=== PATIENT | female | born 1940 | race Caucasian/White ===

== ENCOUNTER 2021-05-07 10:50 | Emergency (ER) | payer MEDICARE, OTHER ==
[~2021-05-07] VITALS: Ht 154.9 cm; Wt 74.4 kg
--- NOTE | 2021-05-07 10:59 | NUR ---
To ER bed 6, bibdaughter, c/o bilateral hand pain and swelling x 1 month, 02/06 ps, aaox3, breathing even and non labored, connected to monitor
[2021-05-07 11:25] LABS: HEMOGLOBIN 11.6 g/dL (11.5-14.8)
[2021-05-07 11:28] LABS: BASOPHILS # (AUTO) 0.1 K/uL (0.0-0.2); BASOPHILS % (AUTO) 0.8 % (0.0-2.0); EOSINOPHILS % (AUTO) 5.7 % (0.0-6.0); HEMATOCRIT 36 % (33-45); LYMPHOCYTES # (AUTO) 2.5 K/uL (0.8-4.8); LYMPHOCYTES % (AUTO) 23.9 % (20.0-44.0); MEAN CORPUSCULAR HGB CONC 33 g/dl (31.0-36.0); MEAN CORPUSCULAR VOLUME 82 fL (82-100); MONOCYTES # (AUTO) 0.9 K/uL (0.1-1.30); MONOCYTES % (AUTO) 8.8 % (2.0-12.0); NEUTROPHILS # (AUTO) 6.4 K/uL (1.8-8.9); NEUTROPHILS % (AUTO) 60.8 % (43.0-81.0); PLATELET COUNT (AUTO) 365 K/uL (150-450); RED BLOOD CELL COUNT(AUTO) 4.31 MIL/uL (4.0-5.2); WHITE BLOOD COUNT (AUTO) 10.6 K/uL (4.3-11.0)
[2021-05-07 11:31] LABS: CALCIUM, SERUM 9.1 mg/dL (8.5-10.1); CARBON DIOXIDE 23 mmol/L (21-32); CHLORIDE 103 mmol/L (98-107); CREATININE 0.7 mg/dL (0.6-1.3); GLUCOSE 108 mg/dL (74-106); POTASSIUM 4.2 mmol/L (3.5-5.1); SODIUM SERUM 136 mmol/L (136-145); UREA NITROGEN, BLOOD 18 mg/dL (7-18)
--- NOTE | 2021-05-07 11:33 | NUR ---
interventional radiology tech at bedside
[2021-05-07 11:37] LABS: ALANINE AMINOTRANSFERASE 22 U/L (12-78); ALBUMIN 3.5 g/dL (3.4-5.0); ALKALINE PHOSPHATASE 76 U/L (46-116); ASPARTATE AMINOTRANSFERASE 9 U/L (15-37); BILIRUBIN,DIRECT 0.1 mg/dL (0.0-0.2); BILIRUBIN,TOTAL 0.2 mg/dL (0.2-1.0); TOTAL PROTEIN, SERUM 8.1 g/dL (6.4-8.2)
--- NOTE | 2021-05-07 13:38 | NUR ---
LIZETH #20G S/L; PATENT AND INTACT.
--- NOTE | 2021-05-07 13:38 | NUR ---
CALLED RADIOLOGY THAT PT IS READY FOT CT
[2021-05-07] MEDS ORDERED: IOHEXOL-300 100 ML VIAL IV ONE (13:40)
[2021-05-07] MEDS ORDERED: IV NS 0.9% 250 ML IV ONE (13:40)
[2021-05-07] MEDS ORDERED: CT SWABBABLE VALVE TRANS SET 1 EA INFUS.SET MC ONE (13:40)
--- NOTE | 2021-05-07 15:16 | NUR ---
Patient discharged to home in stable condition. Written and verbal after care instructions given. Patient verbalizes understanding of instruction. DC IV WITH NO ACTIVE BLEEDING. ambulatory with a steady gait
[2021-05-07 15:28] VITALS: BP 123/91
== END 2021-05-07 15:18 | disposition home or self-care (01) ==
LOC: ER 10:50
DX: R60.9 Edema, unspecified (principal); I10 Essential (primary) hypertension
CPT/HCPCS: 36415; 71045; 71260; 80048; 80076; 84484; 85025; 93005; 99285; J7050; Q9967